=== PATIENT | female | born 1980 | race Caucasian/White ===

== ENCOUNTER → 2017-05-05 | Outpatient (CLI) | payer OTHER | LOC: OD 11:53 | PROVIDERS: ATTEND Nurse Practitioner Primary Care | DX: Z34.90 Encounter for supervision of normal pregnancy, unspecified, unspecified trimester (principal) | CPT/HCPCS: 36415; 84144; 84702 ==

== ENCOUNTER 2017-12-22 10:40 | Outpatient (CLI) | payer OTHER, MEDICAID ==
--- NOTE | 2017-12-22 11:19 | Non Stress Test Report ---
Non Stress Test Datetime Report Generated by CPN: 12/22/2017 11:18 INDICATION Indication for Study: Other Indication for Study (NST) Other: AMA MONITORING Monitor Explained: Monitor Explained; Test Explained; Patient Verbalized Understanding Time on Monitor: 12/22/2017 10:50 Time off Monitor: 12/22/2017 11:12 NST Duration: 22 NST INTERVENTIONS NST Interventions: PO Hydration Physician Notified NST: A Hernández CNM BABY A: [id number] BABY A Movement : Present Contraction Frequency : none FHR Baseline : 140 Accelerations : 15X15 Decelerations : None Variability : Moderate 6-25bpm NST Review: Meets Criteria for Reactive NST NST Review and Verified By : Balwinder Paulino, RN NST Results: Reactive NST REPORT Report Trigger: Send Report
== END 2017-12-22 11:15 | disposition home or self-care (01) ==
LOC: LC 10:40
PROVIDERS: ATTEND Obstetrics & Gynecology
PROC: 4A1HXCZ Monitoring of Products of Conception, Cardiac Rate, External Approach (ICD-10-PCS; principal; 2017-12-22)
DX: Z34.93 Encounter for supervision of normal pregnancy, unspecified, third trimester (principal)
CPT/HCPCS: 59025

== ENCOUNTER 2018-01-05 11:18 | Outpatient (CLI) | payer OTHER, MEDICAID ==
--- NOTE | 2018-01-05 12:00 | Non Stress Test Report ---
Non Stress Test Datetime Report Generated by CPN: 01/05/2018 12:00 DEMOGRAPHIC EGA NST: 39.2 EGA NST: 37.2 INDICATION Indication for Study: Ordered by Provider Indication for Study (NST) Other: ama VITAL SIGNS Temperature - NST: 98.7 RESP - NST: 16 MONITORING Monitor Explained: Monitor Explained; Test Explained; Patient Verbalized Understanding Time on Monitor: 01/05/2018 11:26 Time on Monitor: 01/05/2018 11:28 Time off Monitor: 01/05/2018 11:47 Time off Monitor: 01/05/2018 11:49 NST Duration: 21 NST INTERVENTIONS NST Interventions: None Physician Notified NST: P Fuentes CNM Physician Notified NST: P Fuentes CNM BABY A: [id number] BABY A Movement : Present Movement : Present Contraction Frequency : x1 FHR Baseline : 135 Accelerations : 15X15 Decelerations : None Variability : Moderate 6-25bpm NST Review: Meets Criteria for Reactive NST NST Review and Verified By : Isaac Wood RNC NST Results: Reactive NST REPORT Report Trigger: Send Report
== END 2018-01-05 12:01 | disposition home or self-care (01) ==
LOC: LC 11:18
PROVIDERS: ATTEND Obstetrics & Gynecology Gynecology
PROC: 4A1HXCZ Monitoring of Products of Conception, Cardiac Rate, External Approach (ICD-10-PCS; principal; 2018-01-05)
DX: Z34.93 Encounter for supervision of normal pregnancy, unspecified, third trimester (principal); Z3A.37 37 weeks gestation of pregnancy
CPT/HCPCS: 59025

== ENCOUNTER 2018-01-09 11:37 | Inpatient (IN) | payer OTHER, MEDICAID ==
[2018-01-09] MEDS ORDERED: RINGERS SOLUTION,LACTATED 300 ML IV ONE (12:06)
[2018-01-09] MEDS ORDERED: OXYTOCIN/NORMAL SALINE 20 UNIT/1,000 ML RTUINJ IV PRN ×2 (12:06→17:00)
[2018-01-09] MEDS ORDERED: MISOPROSTOL 0.2 MG TABLET ONE (12:49)
[2018-01-09] MEDS ORDERED: OXYTOCIN/NORMAL SALINE 20 UNIT/1,000 ML RTUINJ ONE (12:49)
[2018-01-09] MEDS ORDERED: LIDOCAINE 1% INJ-PF (10 MG/ML) 30 ML SDV ONE (12:49)
[2018-01-09] MEDS: RINGERS SOLUTION,LACTATED 1,000 ML IV PRN ×2 (12:58→16:26)
[2018-01-09 13:31] LABS: ABSOLUTE EOSINOPHILS # (AUTO) 0.1 10^3/uL (0.0-0.6); ABSOLUTE LYMPHOCYTES (AUTO) 1.4 10^3/uL (0.5-4.7); ABSOLUTE MONOCYTES (AUTO) 0.6 10^3/uL (0.1-1.4); ABSOLUTE NEUT (AUTO) 10.2 10^3/uL (1.7-8.2); BASOPHILS % (AUTO) 0.4 % (0-2); EOSINOPHILS % (AUTO) 0.6 % (0-6); HEMATOCRIT 37.4 % (36.0-47.0); HEMOGLOBIN 12.7 g/dL (12.0-15.5); LYMPHOCYTES % (AUTO) 11.4 % (13-45); MEAN CORPUSCULAR HEMOGLOBIN 29.7 pg (27.0-33.4); MEAN CORPUSCULAR HGB CONC 33.9 g/dL (32.0-36.0); MEAN CORPUSCULAR VOLUME 88 fl (80-97); PLATELET COUNT 162 10^3/uL (150-450); RED BLOOD COUNT 4.27 10^6/uL (3.72-5.28); RED CELL DISTRIBUTION WIDTH 14.9 % (11.5-14.0); SEGMENTED NEUTROPHILS % (AUTO) 82.6 % (42-78); TOTAL CELLS COUNTED % (AUTO) 100 %; WHITE BLOOD COUNT 12.4 10^3/uL (4.0-10.5)
[2018-01-09 13:44] LABS: APPEARANCE,URINE CLEAR; BILIRUBIN,URINE NEGATIVE (NEGATIVE); COLOR,URINE YELLOW; GLUCOSE, URINE NEGATIVE (NEGATIVE); KETONES,URINE NEGATIVE (NEGATIVE); LEUKOCYTE ESTERASE,URINE SMALL (NEGATIVE); NITRITE,URINE NEGATIVE (NEGATIVE); PROTEIN,URINE NEGATIVE (NEGATIVE); URINE SPECIFIC GRAVITY 1.008; UROBILINOGEN,URINE NEGATIVE mg/dL (<2.0)
[2018-01-09 14:01] LABS: URINE AMPHETAMINES SCREEN NEGATIVE; URINE BARBITURATES SCREEN NEGATIVE; URINE BENZODIAZEPINES SCREEN NEGATIVE; URINE COCAINE SCREEN NEGATIVE; URINE MARIJUANA (THC) SCREEN NEGATIVE; URINE METHADONE SCREEN NEGATIVE; URINE PHENCYCLIDINE SCREEN NEGATIVE
--- NOTE | 2018-01-09 15:30 | Admission Physical ---
Datetime Report Generated by CPN: 01/09/2018 15:29 CURRENT ADMISSION Hx Assessment: The History has been Reviewed and is Current Chief Complaint: Sent from OB Office for Evaluation and Treatment - Please Specify Chief Complaint Other: sent from office with nonreactive NST and new dx of oligo by CALIN (4.2 SDP 2.3) Indication for Induction: Oligohydramnios Admit Impression : Term, Intrauterine ; No Active Labor; Induction of Labor Admit Plan: Admit to Unit; Initiate Labor Induction Protocol ALLERGIES Medication Allergies: Yes Medication Allergies: Penicillins/Hives (12/22/2017) Latex: No Latex Allergies OBSTETRICAL HISTORY EDC: 01/10/2018 00:00 : 3 Para: 2 Term: 2 : 0 SAB: 0 IAB: 0 Ectopic: 0 Livin Cesareans: 0 VBACs: 0 Multiple Births: 0 Gestational Diabetes: No Rh Sensitization: No Incompetent Cervix: No GAB: No Infertility: No ART Treatment: No Uterine Anomaly: No IUGR: No Hx Previous C/S: No Macrosomia: No Hx Loss/Stillborn: No PIH: No Hx : No Placenta Previa/Abruption: No Depression/PP Depression: Yes PTL/PROM: No Post Hemorrhage: No Current Procedures: Ultrasound; NST Obstetrical History Comments: G1- 39.5 G2- 41.4 G3- current SEE RECORDS Alcohol: No Marijuana : No Cocaine: No Other Illicit Drugs: No Cigarettes: Never Smoker. [id number] MEDICAL HISTORY Diabetes: No Blood Transfusion: No Pulmonary Disease (Asthma, TB): No Breast Disease: No Hypertension: No Record Filing Clerk Surgery: No Heart Disease: No Hosp/Surgery: Yes Autoimmune Disorder: No Anesthetic Complications: No Kidney Disease: No Abnormal Pap Smear: No Neuro/Epilepsy: No Psychiatric Disorders: No Other Medical Diseases: Yes Hepatitis/Liver Disease: No Significant Family History: No Varicosities/Phlebitis: No Trauma/Violence : No Thyroid Dysfunction: Yes Medical History Comments: hasimoto disease, PCOS L shoulder surgery 2006, adnoids removed, childbirth PCOS INFECTIOUS HISTORY Gonorrhea: No Genital Herpes: No Chlamydia: No Tuberculosis: No Syphilis: No Hepatitis: No HIV/AIDS Exposure: No Rash or Viral Illness: No HPV: No Infectious History Comments: taking valtrex PHYSICAL EXAM General: Normal HEENT: Deferred Neurologic: Normal Thyroid: Deferred Heart: Normal Lungs: Normal Breast: Deferred Back: Normal Abdomen: Normal Genitourinary Exam: Normal Extremities: Normal DTRs: Normal Pelvic Type: Adequate Physical Exam Comments: pelvis proven to 9lbs 10oz Vital Signs: Reviewed; Within Normal Limits VAGINAL EXAM Dilatation: 5 Effacement: 70 Station: -1 Contraction Comments: 2-3 MEMBRANES Membranes: Ruptured Amniotic Fluid Color: Bloody/clear FETUS A EGA: 39.6 Monitoring: External US FHR- Baseline: 135 Variability: Moderate 6-25bpm Accelerations: 15X15 FHR Category: Category I Presentation: Vertex Admit Comment: 37yo IUP @ 39w6d sent from office with new dx of oligo based on CALIN with nonreactive NST. Discussed with Dr. Botello who recommends admission and IOL now. Pt. is O positive, Rubella immune, GBS neg with signficant medical hx of PCOS (on metformin 500mg qd). Medical hx also significant for hypothyroidism (stopped synthroid a month ago, was taking 50mcg q d). ASCUS pap with + HPV at NOB. Needs pap . 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 No other concerns. Pt. AROMed on exam and fluid as noted. Started on pitocin on admission, continue as ordered. PLANS FOR LABOR AND DELIVERY Labor and Delivery: None Pain Management: Natural Feeding Preference: Both Benefit of Breast Feed Discussed: Yes Circumcision: N/A INFORMED CONSENT Assignment: Sherry Botello MD Signature: with User ID: Kelsey : with User ID: Kelsey
[2018-01-09] MEDS ORDERED: MEASLES,MUMPS&RUBELLA VACC/PF 0.5 ML VIAL SUBCUT PRN (17:00)
[2018-01-09] MEDS ORDERED: GLYCERIN/WITCH HAZEL LEAF 1 EACH MED..PAD TP PRN (17:00)
[2018-01-09] MEDS ORDERED: DIPH/PERTUSS(ACELL)/TETANUS VAC/PF 0.5 ML SYR (>=10YO) IM PRN (17:00)
[2018-01-09] MEDS ORDERED: DIPHENHYDRAMINE HCL 25 MG CAPSULE PO PRN (17:00)
[2018-01-09] MEDS ORDERED: PROMETHAZINE HCL INJ 25 MG/1 ML VIAL IV PRN (17:00)
[2018-01-09] MEDS ORDERED: ACETAMINOPHEN 650 MG SUPP.RECT PR PRN (17:00)
[2018-01-09] MEDS ORDERED: DIBUCAINE 1% OINTMENT 28 GM TP PRN (17:00)
[2018-01-09] MEDS ORDERED: PSEUDOEPHEDRINE HCL 30 MG TABLET PO PRN (17:00)
[2018-01-09] MEDS ORDERED: ACETAMINOPHEN 325 MG TABLET PO PRN (17:00)
[2018-01-09] MEDS ORDERED: PROMETHAZINE HCL 25 MG SUPP.RECT PR PRN (17:00)
[2018-01-09] MEDS ORDERED: MAGNESIUM HYDROXIDE SUSP 30 ML UDCUP PO PRN (17:00)
[2018-01-09] MEDS ORDERED: PROMETHAZINE HCL 25 MG TABLET PO PRN (17:00)
[2018-01-09] MEDS ORDERED: NA PHOS,M-B/NA PHOS,DI-BA (ADULT) 133 ML ENEMA PR PRN (17:00)
[2018-01-09] MEDS ORDERED: BENZOCAINE/MENTHOL AEROSOL SPRAY 56 ML TOP PRN (17:00)
[2018-01-09] MEDS: DOCUSATE SODIUM 100 MG CAPSULE PO SCH (18:40)
[2018-01-09] MEDS: FERROUS SULFATE 325 MG TABLET PO SCH (18:41)
[2018-01-09] MEDS ORDERED: DOCUSATE SODIUM 100 MG CAPSULE ONE (18:41)
[2018-01-09] MEDS ORDERED: FERROUS SULFATE 325 MG TABLET PO ONE (18:42)
[2018-01-09] MEDS ORDERED: ACETAMINOPHEN 325 MG TABLET ONE (18:42)
--- NOTE | 2018-01-09 18:57 | Delivery Summary ---
Del Sum A-C Datetime Report Generated by CPN: 01/09/2018 18:56 DELIVERY PERSONNEL DELIVERY PERSONNEL: [id number] Delivery Doctor:: Aida Ramirez CNM Labor and Delivery Nurse:: Akiko Rivas RNfacility worker Nurse:: Brooke Reese RN Retail Interior Designer:: Kristi Miranda RN [employer]/PCT: Sofia Gutierrez, ST [employer]/PCT: Charity Kelly, AIRCRAFT LAYOUT WORKER MATERNAL INFORMATION Delivery Anesthesia: None Medications After Delivery: Pitocin Bolus-Please Comment; Pitocin Drip 20 Units/1000ml NSS Maternal Complications: None Provider Comments: Pt. requested pain meds then started screaming with urge to push, went in the room and patient was found to be c/c/+1, started pushing and quickly delivered a viable baby girl with vigorous respiratory effort and cry with tactile stimulation. Baby placed on maternal abdomen and voided. Cord allowed to stop pulsating then clamped x2 and cut by patient's friend (3vc noted). Placenta delivered spontaneously intact with marginal cord insertion. Vaginal and perineal inspection revealed no lacerations, multiple moderate clots with fundal, bleeding stable, fundus firm @ U-1 minimal bleeding after fundal massage. Mother and baby remain skin to skin and bonding at this time. LABOR SUMMARY EDC: 01/10/2018 00:00 No. Babies in Womb: 1 Attempted: No Labor Anesthesia: None LABOR INFORMATION Reason for Induction: Oligohydramnios Onset of Labor: 01/09/2018 15:06 Complete Dilatation: 01/09/2018 16:34 Oxytocin: Induction Group B Beta Strep: Negative Antibiotics # of Doses: 0 Steroids Given: None Reason Steroids Not Administered: Not Applicable MEMBRANES Membranes Rupture Method: Artificial Rupture of Membranes: 01/09/2018 15:06 Length of Rupture (hr): 1.53 Amniotic Fluid Color: Bloody Amniotic Fluid Amount: Small STAGES OF LABOR Stage 1 hr: 1 Stage 1 min: 28 Stage 2 hr: 0 Stage 2 min: 4 Stage 3 hr: 0 Stage 3 min: 4 Total Time in Labor hr: 1 Total Time in Labor min: 36 VAGINAL DELIVERY Episiotomy: None Laceration #1: None Laceration Extension #1: N/A Laceration Repair: Not Applicable Sponge Count Correct: N/A Sharps Count Correct: N/A CSECTION DELIVERY Primary Indication: N/A Secondary Indication: N/A CSection Incidence: N/A Labor: N/A Elective: N/A CSection Incision: N/A BABY A INFORMATION Infant Delivery Date/Time: 01/09/2018 16:38 Method of Delivery: Vaginal Born in Route : No : N/A Forceps: N/A Vacuum Extraction: N/A Shoulder Dystocia : No PRESENTATION/POSITION BABY A Presentation: Cephalic Cephalic Presentation: Vertex Vertex Position: Right Occipital Anterior Breech Presentation: N/A PLACENTA INFORMATION BABY A Placenta Delivery Time : 01/09/2018 16:42 Placenta Method of Delivery: Spontaneous Placenta Status: Delivered SCORES BABY A Heart Rate 1 min: >100 bpm Resp Effort 1 min: Good Cry Reflex Irritability 1 min: Cough or Sneeze or Pulls Away Muscle Tone 1 min: Active Motion Color 1 min: Blue/Pale Resuscitation Effort 1 min: Tactile Stimulation SCORE 1 MIN: 8 Heart Rate 5 min: >100 bpm Resp Effort 5 min: Good Cry Reflex Irritability 5 min: Cough or Sneeze or Pulls Away Muscle Tone 5 min: Active Motion Color 5 min: Body [place], Extremities Blue Resuscitation Effort 5 min: Tactile Stimulation SCORE 5 MIN: 9 INFORMATION BABY A Gestational Age at Delivery: 39.6 Gestational Status: Full Term- 39- 40.6 Weeks Infant Outcome : Liveborn Condition : Stable Sex: Female IDENTIFICATION BABY A Infant Verification Date/Time: 01/09/2018 16:53 ID Band Number: [id number] Mother's Name Verified: Yes Infant RN Verifying : YANIRA REESE, RN Additional Verifying Personnel: [facility], RN WEIGHT/LENGTH BABY A Infant Birthweight (gm): 3250 Weight (lb): 7 Infant Weight (oz): 3 Length (in): 20.00 Infant Length (cm): 50.80 CORD INFORMATION BABY A No. Cord Vessels: 3 Nuchal Cord : N/A Cord Blood Taken: Yes-For Eval (Mom's Blood Type - or O+) Infant Suction: None ASSESSMENT BABY A Complications: None Physical Findings at Delivery: Within Normal Limits Physical Findings- Other: VOIDED Infant Respirations: Appears Normal Skin to Skin: Yes Skin to Skin Time (min): 55 Pet Adoption Counselor/ALS Called : No Infant Care By: B MARCUS, RN Transferred To: Remains with Mother BABY B INFORMATION : N/A SIGNATURES Assignment: Sherry Botello MD Signature: with User ID: Kelsey : with User ID: Kelsey
[2018-01-09] MEDS: FAMOTIDINE 20 MG TABLET PO SCH (22:53)
[2018-01-09] MEDS: IBUPROFEN 800 MG TABLET PO SCH (22:53)
[2018-01-10] MEDS: IBUPROFEN 800 MG TABLET PO SCH ×3 (06:36→22:04)
[2018-01-10 06:50] LABS: MEAN CORPUSCULAR VOLUME 89 fl (80-97)
[2018-01-10 06:55] LABS: HEMATOCRIT 31.2 % (36.0-47.0); HEMOGLOBIN 10.5 g/dL (12.0-15.5); MEAN CORPUSCULAR HEMOGLOBIN 29.9 pg (27.0-33.4); MEAN CORPUSCULAR HGB CONC 33.7 g/dL (32.0-36.0); PLATELET COUNT 171 10^3/uL (150-450); RED BLOOD COUNT 3.52 10^6/uL (3.72-5.28); RED CELL DISTRIBUTION WIDTH 15.4 % (11.5-14.0); WHITE BLOOD COUNT 11.8 10^3/uL (4.0-10.5)
[2018-01-10] MEDS: FAMOTIDINE 20 MG TABLET PO SCH ×2 (09:14→22:04)
[2018-01-10] MEDS: SENNOSIDES/DOCUSATE 8.6-50 MG 1 EACH TABLET PO SCH (09:14)
[2018-01-10] MEDS: DOCUSATE SODIUM 100 MG CAPSULE PO SCH ×2 (09:14→18:42)
[2018-01-10] MEDS: PRENATAL VITAMIN W DHA CAPSULE PO SCH (09:14)
[2018-01-10] MEDS: FERROUS SULFATE 325 MG TABLET PO SCH ×2 (09:14→18:43)
--- NOTE | 2018-01-10 09:59 | PDOC PROGRESS REPORT ---
Subjective-OB Progress Note for:: 01/10/18 Subjective: Doing well, no c/o, voiding, eating well Physical Exam (OB) Vital Signs: Temp Pulse Resp BP Pulse Ox 98.1 F 84 18 125/78 99 01/10/18 08:24 01/10/18 08:24 01/10/18 08:24 01/10/18 08:24 01/10/18 08:24 Intake & Output 01/09/18 01/10/18 01/11/18 06:59 06:59 06:59 Weight 97.6 kg - Lochia Lochia Amount: Scant < 10 ml Lochia Color: Rubra/Red - Abdomen Description: Tender, Soft Hernia Present: No Fundal Description: Firm, Midline Fundal Height: u/u - u/2 Objective-Diagnostic Laboratory: 01/10/18 06:25 01/09/18 01/09/18 01/09/18 12:27 13:14 13:14 WBC 12.4 H RBC 4.27 Hgb 12.7 Hct 37.4 MCV 88 MCH 29.7 MCHC 33.9 RDW 14.9 H Plt Count 162 Seg Neutrophils % 82.6 H Lymphocytes % 11.4 L Monocytes % 5.0 Eosinophils % 0.6 Basophils % 0.4 Absolute Neutrophils 10.2 H Absolute Lymphocytes 1.4 Absolute Monocytes 0.6 Absolute Eosinophils 0.1 Absolute Basophils 0.0 Urine Color YELLOW Urine Appearance CLEAR Urine pH 7.0 Ur Specific [place] 1.008 Urine Protein NEGATIVE Urine Glucose (UA) NEGATIVE Urine Ketones NEGATIVE Urine Blood NEGATIVE Urine Nitrite NEGATIVE Ur Leukocyte Esterase SMALL H Blood Type O POSITIVE Antibody Screen NEGATIVE 01/10/18 06:25 WBC 11.8 H RBC 3.52 L Hgb 10.5 L D Hct 31.2 L MCV 89 MCH 29.9 MCHC 33.7 RDW 15.4 H Plt Count 171 Seg Neutrophils % Lymphocytes % Monocytes % Eosinophils % Basophils % Absolute Neutrophils Absolute Lymphocytes Absolute Monocytes Absolute Eosinophils Absolute Basophils Urine Color Urine Appearance Urine pH Ur Specific [place] Urine Protein Urine Glucose (UA) Urine Ketones Urine Blood Urine Nitrite Ur Leukocyte Esterase Blood Type Antibody Screen Assessment and Plan(PN) - Assessment and Plan (1) Delivery normal Is this a current diagnosis for this admission?: Yes (2) Oligohydramnios Qualifiers: Fetus number: single or unspecified fetus Is this a current diagnosis for this admission?: Yes - Time Spent with Patient Time with patient: Less than 15 minutes Medications reviewed and adjusted accordingly: Yes - Disposition Anticipated Discharge: Home Within: within 24 hours
[2018-01-11] MEDS: IBUPROFEN 800 MG TABLET PO SCH ×2 (06:28→13:43)
[2018-01-11] MEDS: SENNOSIDES/DOCUSATE 8.6-50 MG 1 EACH TABLET PO SCH (09:06)
[2018-01-11] MEDS: FERROUS SULFATE 325 MG TABLET PO SCH (09:06)
[2018-01-11] MEDS: DOCUSATE SODIUM 100 MG CAPSULE PO SCH (09:06)
[2018-01-11] MEDS: PRENATAL VITAMIN W DHA CAPSULE PO SCH (09:06)
[2018-01-11] MEDS: FAMOTIDINE 20 MG TABLET PO SCH (09:06)
--- NOTE | 2018-01-11 09:12 | PDOC PROGRESS REPORT ---
Subjective-OB Progress Note for:: 01/11/18 Subjective: Ready to go home. Physical Exam (OB) Vital Signs: Temp Pulse Resp BP Pulse Ox 98.1 F 77 16 119/68 99 01/11/18 08:27 01/11/18 08:27 01/11/18 08:27 01/11/18 08:27 01/11/18 08:27 Intake & Output 01/10/18 01/11/18 01/12/18 06:59 06:59 06:59 Intake Total 440 Balance 440 Weight 97.6 kg - Lochia Lochia Amount: Small 10-25 ml Lochia Color: Rubra/Red - Abdomen Description: Soft, Round Hernia Present: No Bowel Sounds: Normoactive Flatus Presence: Present Stool: Yes Fundal Description: Firm, Midline Fundal Height: u/u - u/2 Objective-Diagnostic Laboratory: 01/10/18 06:25 Assessment and Plan(PN) - Time Spent with Patient Medications reviewed and adjusted accordingly: Yes - Disposition Anticipated Discharge: Home
--- NOTE | 2018-01-11 09:17 | PDOC DISCHARGE SUMMARY ---
Final Diagnosis Discharge Date: 01/11/18 - Final Diagnosis (1) AMA (advanced maternal age) multigravida 35+ Is this a current diagnosis for this admission?: Yes (2) Delivery normal Is this a current diagnosis for this admission?: Yes (3) History of OSIRIS positive for HSV Is this a current diagnosis for this admission?: Yes (4) History of depression Is this a current diagnosis for this admission?: Yes (5) Hypothyroidism Is this a current diagnosis for this admission?: Yes (6) Oligohydramnios Is this a current diagnosis for this admission?: Yes (7) PCOS (polycystic ovarian syndrome) Is this a current diagnosis for this admission?: Yes (8) Is this a current diagnosis for this admission?: Yes Discharge Data - Discharge Medication Home Medications: Pnv W-O Ca No5/Fe Fumarate/FA [-U Multiple Vitamin Capsule] 1 cap PO DAILY 07/09/13 Levothyroxine Sodium 50 mcg PO DAILY 12/22/17 Metformin HCl 500 mg PO DAILY 12/22/17 Valacyclovir HCl [Valtrex 500 mg Tablet] 500 mg PO DAILY 12/22/17 Cetirizine HCl [Zyrtec 10 mg Tablet] 1 tab PO DAILY 01/09/18 Esomeprazole Magnesium [Nexium] 40 mg PO DAILY 01/09/18 Gestational Age: 39.6 wks Reason(s) for Admission: Induction of Labor, Obstetric Complications Procedures: Ultrasound Intrapartum Procedure(s): Spontaneous Vaginal Delivery - [place] Data Baby 1 Female at 1 minute: 8 at 5 minutes: 9 Weight: 3.26 kg Home with Mother: Yes Complications: No - Diagnosis Test Laboratory: Temp Pulse Resp BP Pulse Ox 98.1 F 77 16 119/68 99 01/11/18 08:27 01/11/18 08:27 01/11/18 08:27 01/11/18 08:27 01/11/18 08:27 01/09/18 01/09/18 01/10/18 12:27 13:14 06:25 RBC 4.27 3.52 L Hgb 12.7 10.5 L D Hct 37.4 31.2 L Urine Opiates Screen NEGATIVE - Discharge information/Instructions Discharge Activity: Activity As Tolerated, Balance Activity w/Rest, Pelvic Rest , Slowly Increase Activity, No tub bath Discharge Diet: Regular Disposition: HOME, SELF-CARE Follow [facility]: [facility] in: 4, Weeks
[2018-01-11 11:16] VITALS: BP 118/76
== END 2018-01-11 15:25 | disposition home or self-care (01) | DRG 774 ==
LOC: LC 11:37 → LR 12:09 → 2S 20:10
PROVIDERS: ADMIT Obstetrics & Gynecology; ATTEND Obstetrics & Gynecology
PROC: 10E0XZZ Delivery of Products of Conception, External Approach (ICD-10-PCS; principal; 2018-01-09)
DX: O41.03X0 Oligohydramnios, third trimester, not applicable or unspecified (principal); O98.32 Other infections with a predominantly sexual mode of transmission complicating childbirth; O62.3 Precipitate labor; O99.284 Endocrine, nutritional and metabolic diseases complicating childbirth; E03.9 Hypothyroidism, unspecified; E28.2 Polycystic ovarian syndrome; O99.344 Other mental disorders complicating childbirth; F32.9 Major depressive disorder, single episode, unspecified; A63.0 Anogenital (venereal) warts; Z3A.39 39 weeks gestation of pregnancy; Z37.0 Single live birth
CPT/HCPCS: 36415; 80307; 81005; 85025; 85027; 86592; 86850; 86900; 86901; J2590; J3490